=== PATIENT | female | born 2005 | race Caucasian/White ===

== ENCOUNTER 2025-03-29 10:00 | Outpatient (RCR) | payer OTHER, SELFPAY ==
[2025-03-15 09:32] VITALS: BMI 21.5
[2025-03-15 10:08] VITALS: BP 93/68; PULSE 77; TEMP 37.2
--- NOTE | 2025-03-15 13:41 | PC.ADMIT ---
Patient is a 19 year old single female who self referred to PHP d/t increased sxs of depression and anxiety. Patient reports that she feels stuck in her life and does not know what direction to go in. Reports low motivation to do things. Patient tearful at times during assessment. Feels overwhelmed and feels afraid of her future. Reports she started community college however was not able to continue attending d/t severe social anxiety and low self esteem. Regarding college patient stated, I never did well in HS. Just go into college and I felt so alone. I was doing it on my own and it was scary. Patient reports she is currently unemployed. She reports history of employment reporting she was last employed at [employer]. Patient identified supports as being, Parents, sister, and my friends. Patient reports she has a boyfriend for the past three months. Patient reports history of self harm by hitting her head when feeling overwhelmed. Last hit her head about three weeks ago. She stated the last self harm incident she did not hit her head that hard. Patient is alert and oriented x4. She is calm and cooperative. She presented with depressed mood and anxious affect. She denied SI, no HI. She was given a copy of her safety plan if needed. Patient reports she does not take her medication as prescribed. Reports she was afraid to take Clonidine as she thought the medication was addictive. Medication education provided. Patient reports that she has not taken Prozac for the past three weeks. I instructed Jessica to talk to Dr. Nam if she had any thoughts to restart Prozac as she may need to decrease the dose. Patient denied alcohol or any other substance use with the exception of using marijuana once a month or less.
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
--- NOTE | 2025-03-22 14:41 | HO.PHP ---
PHP staff member faxed over a referral to [facility] for therapy. PHP staff member is awaiting a response with the appointment date and time.
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
--- NOTE | 2025-03-24 13:38 | HO.PHP ---
PHP admin, Laurita, informed the team that Jessica will not be in today due to being sick.
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
== END 2025-03-29 23:59 | disposition home or self-care (01) ==
LOC: HO.PHPA 10:00
PROVIDERS: Visit Provider Psychiatry & Neurology Psychiatry
DX: F33.2 Major depressive disorder, recurrent severe without psychotic features (principal); F90.9 Attention-deficit hyperactivity disorder, unspecified type; F41.1 Generalized anxiety disorder; Z79.899 Other long term (current) drug therapy
CPT/HCPCS: 90791; 90853